=== PATIENT | female | born 1995 | race Caucasian/White ===

== ENCOUNTER 2024-11-21 09:39 | Outpatient (CLI) | payer OTHER, SELFPAY ==
[2024-11-21 10:00] VITALS: BP 106/65; PULSE 89
[2024-11-21 10:02] VITALS: PULSE 79; O2SAT 91
[2024-11-21 10:06] VITALS: PULSE 97; O2SAT 100
[2024-11-21 10:08] VITALS: PULSE 86; O2SAT 100
[2024-11-21 10:10] VITALS: TEMP 36.6
[2024-11-21 10:13] VITALS: PULSE 82; O2SAT 100
[2024-11-21 10:34] LABS: Add Urine Microscopic? YES; Appearance Urine Cloudy (Clear); Glucose Urine UA Negative (Negative); Leukocyte Esterase Ur Negative LEU/UL (Negative); Need Manual Microscopic Reviewed; Nitrate Urine Negative (Negative); Non Pathogenic Casts 0-2; OBXCEM ROM Plus Negative (Negative); Specific Grav Ur 1.020 (1.001-1.035)
--- OUTSIDE RECORDS SUMMARY | 2024-11-21 10:39 | XMS_ITS | Clinical Summary ---
Author Organization [facility] Address [address] [place] [address] Care Team Providers Care Business Dean Name Role Phone Unavailable Primary Care Provider Unavailabl e Source Comments [facility],non-owned Affiliates and Associated Physician Practices is amultiple site organization consisting of ambulatory clinics and hospital sitesin [place], [place], [place] and [place]. This disclosure is being madepursuant to the Care Everywhere program and may not contain all information available regarding this patient. Last updated 17.[facility] Allergies No known active allergies Social History Tobacco Use Types Packs/Day Years Used Date Smoking Tobacco: Never Assessed Comments Unknown Sex and Gender Information Value Date Recorded Sex Assigned at Not on file Legal Sex Female 3:50 PM CENA Gender Identity Not on file Sexual Orientation Not on file Last Filed Vital Signs Vital Sign Reading Time Taken Comments Blood Pressure 92/51 12/30/2021 12:04 PM CDT Pulse 89 12/30/2021 12:04 PM CDT Temperature 36 C (96.8 F) 12/30/2021 7:31 AM CDT Respiratory Rate 16 12/30/2021 6:11 AM CDT Oxygen Saturation 96% 12/30/2021 12:04 PM CDT Inhaled Oxygen Concentration - - Weight 65.8 kg (145 lb) 12/30/2021 6:11 AM CDT Height 167.6 cm (5' 6) 12/30/2021 6:11 AM CDT Body Mass Index 23.4 12/30/2021 6:11 AM CDT Plan of Treatment Health Maintenance Due Date Last Done Comments HIV SCREENING 05/14/2010 HEPATITIS C SCREENING 05/10/2013 DTAP/TDAP/TD VACCINES (1 - Tdap) 05/14/2014 HEPATITIS B VACCINE (1 of 3 - 19+ 3-dose series) 05/14/2014 PAP SMEAR 05/14/2016 HPV VACCINE (1 - 3-dose SCDM series) 05/14/2022 DEPRESSION SCREENING 03/12/2024 COVID-19 VACCINE (3 - 2024-2 6 season) 2024 04/19/2020, 03/30/2020 INFLUENZA VACCINE (#1) 2024 , 05/14/2017 ZOSTER VACCINE (1 of 2) 05/14/2045 HIB VACCINE Aged Out No longer eligi ble based on patient's age to complete this topic MENINGOCOCCAL (Group B) VACCINE SHARED DECISION-MAKING Aged Out No longer eligible based on patient's age to complete this topic MENINGOCOCCAL GROUPS A/C/Y/W VACCINE Aged Out No longer eligible b ased on patient's age to complete this topic PNEUMOCOCCAL VACCINE Aged Out No long er eligible based on patient's age to complete this topic Insurance * Guarantor: MELISSA BRAMBILA Account Type Relation to Patient Date of Phone Billing Address Personal/Family 1995 ([place]) [address] [place] [phone] [employer]
--- OUTSIDE RECORDS SUMMARY | 2024-11-21 10:39 | XMS_ITS | Encounter Summary ---
Author Organization [facility] Address [address] [place] [address] Care Team Providers Care Ophthalmic Technician Apprentice Name Role Phone Unavailable Primary Care Provider Unavailabl e Encounter Details Date Type Department Care Team (Late st Contact Info) Description 08/21/2018 Lab Requisition [facility] [address] [facility] [facility] [place] [address] Jonathan Ennis MD [address] [place], [place] [id number] Social History Tobacco Use Types Packs/Day Years Used Date Smoking Tobacco: Never Assessed Comments Unknown Sex and Gender Information Value Date Recorded Sex Assigned at Not on file Legal Sex Female 3:50 PM DIRECTOR PROCESS IMPROVEMENT Gender Identity Not on file Sexual Orientation Not on file documented as of this encounter Plan of Treatment Not on file documented as of this encounter Procedures Procedure Name Priority Date/Time Associated Diagnosis Comments DERMATOPATHOLOGY Routine 08/20/2018 12:0 0 AM CDT documented in this encounter Results * DERMATOPATHOLOGY (08/20/2018 12:00 AM CDT) Case Report Dermatopathology Report Case: [id number] Authorizing Provider: Jonathan Ennis MD Collected: 08/20/2018 12:00 AM Pathologist: Lottie Omalley MD Received: 08/21/2018 01:12 PM Specimen: Skin, right neck 4:22 PM CDT DERMATOPATHOLOGY LABORATORY Final Diagnosis Specimen A. SKIN, right neck: INTRADERMAL MELANOCYTIC NEVUS (D22.4) 4:22 PM CDT DERMATOPATHOLOGY LABORATORY at 1622 CDT Clinical History R/O pig nevus. 4:22 PM CDT DERMATOPATHOLOGY LABORATORY Gross Description Specimen A: Received is one formalin filled container labeled with the patient's name and designated right neck. The specimen consists of a shave biopsy measuring [id number]. Jar 0. 4:22 PM CDT DERMATOPATHOLOGY LABORATORY Microscopic Description Specimen A. SKIN, right neck: There are nests of cytologically bland melanocytes within the dermis that mature with depth. 4:22 PM CDT DERMATOPATHOLOGY LABORATORY Disclaimer An external and internal positive and negative controls are appropriate for the histochemical, immunohistochemical and immunofluorescence stain(s) in this case (if any), except where stated explicitly. The performance characteristics of the stain(s) cited in this report were developed and its performance characteristic determined by the Dermatopathology Laboratory at [facility], directed by Dr. Van Daniel. These tests need not be, and therefore are not, approved by the [place] Food and Drug Administration. The tests are used for clinical purposes. Billing Codes Specimen Charges Stain Charges 15856 1 4:22 PM CDT DERMATOPATHOLOGY LABORATORY Embedded Images 4:22 PM CDT DERMATOPATHOLOGY LABORATORY Pathology/Cytolog y TISSUE SPECIMEN FROM SKIN / Unknown 08/20/2018 08/21/2018 1:12 PM CDT us Jonathan Ennis MD LAB - PATHOLOGY/CYTOLOGY HIEU RIVERO Final Result DERMATOPATHOLOGY LABORATORY [facility] - Department of Dermatology [facility] [facility] [place] [address], [facility] [phone] documented in this encounter Visit Diagnoses Not on filedocumented in this encounter
--- OUTSIDE RECORDS SUMMARY | 2024-11-21 10:39 | XMS_ITS | Clinical Summary ---
Author Organization [facility] Address [facility]ly [facility] [place] [address] Care Team Providers Care Collar Setter Name Role Phone Rogelio Palomino MD Primary Care Provider [phone] Allergies No known active allergies Medications ALPRAZolam (XANAX) 0.5 MG tablet Take 0.5 tablets (0.25 mg total) by mouth 2 (two) times daily. Active amphetamine-dex troamphetamine (ADDERALL) 10 MG tablet Take 1 tablet (10 mg total) by mouth 2 (two) times daily. Take in morning and take in afternoon 3 Active BLISOVI FE 03/31 1-20 MG-MCG tablet Take 1 tablet by mouth daily. 3 Active ondansetron (ZOFRAN) 4 MG tablet Take 1 tablet (4 mg total) by mouth every 8 (eight) hours as needed for Nausea. Active polyethylene glycol (GLYCOLAX) packet Take 240 mLs (17 g total) by mouth daily. Dissolve powder in 240 mL water Active cetirizine (ZYRTEC) 5 MG tablet Take 2 tablets (10 mg total) by mouth daily. Active cefdinir (OMNICEF) 300 MG Cap capsule Take 1 capsule (300 mg total) by mouth 2 (two) times daily. Start with evening dose on 04/26. 19 capsule 4 Active HYDROcodone-lacy taminophen (NORCO) 5-325 MG tabletIndicatio ns:Acute Pain < 7 Day Supply Take 1 tablet by mouth every 6 (six) hours as needed. Indications: Acute Pain < 7 Day Supply 15 tablet 4 Active Active Problems Problem Noted Date Diagnosed Date Acute abdominal pain in right flank 04/23/2023 Acute gastroenteritis 04/23/2023 Acute pelvic inflammatory disease (PID) 04/23/19 24 Attention-deficit hyperactiv ity disorder, predominantly inattentive type 04/23/2023 Ovarian cyst rupture 04/23/2023 Dysuria 04/23/2023 Major depressive disorder, single episode, unspe cified 04/23/2023 Urinary tract infection 04/23/2023 Renal abscess 04/18/2023 Cigarette smoker 05/16/2020 Cyst of ovary 05/16/2020 Pelvic and perineal pain 04/06/2019 Overview (04/23/2023): Pelvic pain;Recorded Elsewhere: No Location: [facility] Source: EHR Chronic: N Practice ID: [id number] Billable Time: 09:45:00 AM Atypical squamous cells of u ndetermined significance (ASCUS) on Papanicolaou smear of cervix 07/17/2018 Overview (04/23/2023): Atyp squam cell of undet signfc cyto smr crvx (ASC-US);Recorded Elsewhere: No Location: [facility] Source: EHR Chronic: N Practice ID: [id number] Billable Time: 10:30:00 AM Resolved Problems Problem Noted Date Diagnosed Date Resolved Date Annual physical exam 04/23/2023 024 Family History Medical History Relation Comments Genitourinary () Neg Hx Social History Tobacco Use Types Packs/Day Years Used Date Smoking Tobacco: Some Days Cigarettes Smokeless Tobacco: Never Alcohol Use Standard Drinks/Week Comments Yes 1.7 (1 standard drink = 0.6 oz p ure alcohol) [facility] Utilities Answer Date Recorded In the past 12 months has e [employer], gas, oil, or water [employer] threatened to shut off services in your home? Patient declined 04/18/2023 Humiliation, Afraid, Rape, and Kick questionnair e Answer Date Recorded Within the last year, have y ou been afraid of your partner or ex-partner? Patient declined 04/18/2023 Within the last year, have y ou been humiliated or emotionally abused in other ways by your partner or ex-partner? Patient declined 04/18/2023 Within the last year, have y ou been kicked, hit, slapped, or otherwise physically hurt by your partner or ex-partner? Patient declined 04/18/2023 Within the last year, have y ou been raped or forced to have any kind of sexual activity by your partner or ex-partner? Patient declined 04/18/2023 Overall Financial Resource Strain (CARDIA) Answe r Date Recorded How hard is it for you to pa y for the very basics like food, housing, medical care, and heating? Patient declined 04/18/2023 Hunger Vital Sign Answer Date Recorded Within the past 12 months, y ou worried that your food would run out before you got the money to buy more. Patient declined Within the past 12 months, t he food you bought just didn't last and you didn't have money to get more. Patient declined 09/2023 PRAPARE - Transportation Answer Date Re corded In the past 12 months, has l ack of transportation kept you from medical appointments or from getting medications? Patient declined 04/18/2023 In the past 12 months, has l ack of transportation kept you from meetings, work, or from getting things needed for daily living? Patient declined 04/18/2023 Housing Stability Vital Sign Answer Karlos e Recorded In the last 12 months, was t here a time when you were not able to pay the mortgage or rent on time? Patient declined 04/18/19 24 In the last 12 months, how many places have you lived? 1 04/18/2023 In the last 12 months, was t here a time when you did not have a steady place to sleep or slept in a long term (including now)? Patient declined 04/18/2023 Comments Unknown Sex and Gender Information Value Date Recorded Sex Assigned at Not on file Legal Sex Female 1:05 PM TOUR BUS DRIVER Gender Identity Not on file Sexual Orientation Not on file Last Filed Vital Signs Vital Sign Reading Time Taken Comments Blood Pressure 101/61 04/26/2023 5:25 AM TOUR BUS DRIVER Pulse 87 04/26/2023 5:25 AM TOUR BUS DRIVER Temperature 36.4 C (97.5 F) 04/26/2023 5:25 AM TOUR BUS DRIVER Respiratory Rate 18 04/26/2023 5:25 AM TOUR BUS DRIVER Oxygen Saturation 98% 04/26/2023 5:25 AM TOUR BUS DRIVER Inhaled Oxygen Concentration - - Weight 68.6 kg (151 lb 3.8 oz) 04/25/2023 4:23 A M TOUR BUS DRIVER Height 167.6 cm (5' 6) 04/18/2023 3:00 PM TOUR BUS DRIVER Body Mass Index 24.41 04/18/2023 3:00 PM TOUR BUS DRIVER Plan of Treatment Health Maintenance Due Date Last Done Comments Annual Physical 05/14/1998 DTaP, Tdap and Td Vaccines ( 1 - Tdap) 05/14/2014 Hepatitis B Vaccines (1 of 3 - 19+ 3-dose series) 05/14/2014 Pneumococcal Vaccine: Pediatrics (0 to 5 Years) and At-Risk Patients (6 to 49 Years) (1 of 2 - PCV) 05/14/2014 HPV Vaccines (1 - 3-dose SCD M series) 05/14/2022 COVID-19 Vaccine ( - 2023-2 5 season) 2024 Cervical Cancer Screening Pa p Smear (Age 21 to 29) Every 3 Years 03/02/2026 03/02/2023, 03/16/2020 Cervical Cancer Screening 03/02/2026 Hepatitis C Completed 03/02/2023, 03/02/2023 Meningococcal B Vaccine Aged Out No l onger eligible based on patient's age to complete this topic Meningococcal Vaccine Aged Out No blanca damaris eligible based on patient's age to complete this topic RSV Immunizations Under 20 Months Aged Out No longer eligible b ased on patient's age to complete this topic Advance Directives * Full Code (Latest Code Status on File) Date Activated Date Inactivated Comments 04/18/2023 3:54 PM 04/26/2023 12:31 PM Care Teams Collar Setter Relationship Specialty Start Date End Date Rogelio Palomino MD [address] [place] [address] PCP - General INTERNAL MEDICINE 04/16/23
== END 2024-11-21 11:05 | disposition home or self-care (01) ==
LOC: ANHOBOP 09:57 → ANHOBPP 09:58
PROVIDERS: PCP Nurse Practitioner Family; Visit Provider Obstetrics & Gynecology
DX: O42.90 Premature rupture of membranes, unspecified as to length of time between rupture and onset of labor, unspecified weeks of gestation (principal); Z3A.00 Weeks of gestation of pregnancy not specified
CPT/HCPCS: 81001; 84112; 87086; 99199